=== PATIENT | female | born 1945 | race Two or more races ===

== ENCOUNTER 2017-11-23 14:36 | Outpatient (CLI) | payer MEDICARE, OTHER ==
[~2017-11-23 14:36] MED LIST: AMITRIPTYLINE25 MG ORAL; ASPIRIN EC81 MG ORAL; ATENOLOL50 MG ORAL; BIOTIN5000 MCG PO; CALCIUM500 M2 PO; FISH OIL CAP1000 MG ORAL; GLUCOSAMINE1000 M1 PO; METFORMIN HCL500 M1 ORAL; MULTIVITAMINS1 EAC2 ORAL; NEXIUM40 MG ORAL; PRESERVISION A1 EAC2 PO; PRIMIDONE50 MG PO; PROLIA60 MG/1 ML SUBQ; SINGULAIR10 MG ORAL; VITAMIN B12 INJ; VITAMIN D250000 UNI1 ORAL; ZETIA10 MG ORAL
[2017-11-23 14:50] VITALS: BP 121/61
--- NOTE | 2017-11-23 15:18 | GI Progress Note ---
Assessment/Plan Problems: (1) GERD (gastroesophageal reflux disease) ICD Codes: K21.9 - Gastro-esophageal reflux disease without esophagitis SNOMED: 124333501 Status: stable Status Narrative Seen with Dr. Justice. Assessment/Plan SUMMARY OF FINDINGS reviewed with patient: 1. Diffuse gastritis, status post biopsy. 2. Significant diverticulosis. 3. Two colonic polyp removed. See above for details. 4. Internal hemorrhoids. RECOMMENDATIONS: Follow up biopsy results and treat accordingly. >> negative for H. Pylori RTC prn repeat colonoscopy x 5 years Subjective Subjective GERD >> mild Objective T 97.5 BP 121/65 P 62 98 RA General Appearance: WD/WN, no apparent distress, alert Cardiovascular: normal rate Respiratory/Chest: normal breath sounds, no respiratory distress Abdominal Exam: normal bowel sounds, non tender, soft Extremities: normal range of motion, non-tender Lynda Chaudhary N.P. November 23, 2017 15:18
== END 2017-11-23 15:10 | disposition home or self-care (01) ==
LOC: PAN 14:36
DX: K21.9 Gastro-esophageal reflux disease without esophagitis (principal); K29.70 Gastritis, unspecified, without bleeding; K57.90 Diverticulosis of intestine, part unspecified, without perforation or abscess without bleeding; K63.5 Polyp of colon; K64.8 Other hemorrhoids
CPT/HCPCS: 99211

== ENCOUNTER 2020-05-14 13:08 | Outpatient (CLI) | payer MEDICARE, OTHER ==
[2020-05-14 13:40] VITALS: BP 114/65
[2020-05-14] MEDS ORDERED: CIPRO500 MG PO (13:40)
[2020-05-14] MEDS ORDERED: ZOFRAN4 M3 ORAL (13:40)
[2020-05-14 13:45] VITALS: BP 104/57
--- NOTE | 2020-05-14 14:02 | General Progress Note ---
Subjective ROS Limited/Unobtainable: Yes Allergies: Coded Allergies: No Known Allergies (Unverified , 11/06/17) Objective Last 24 Hour Vital Signs Date Time Temp Pulse Resp B/P (MAP) Pulse Ox O2 Delivery O2 Flow Rate FiO2 05/14/20 13:40 97.7 70 16 114/65 96 General Appearance: alert EENT: normal ENT inspection Neck: supple Cardiovascular: normal rate Respiratory/Chest: lungs clear Abdomen: normal bowel sounds, non tender, soft Extremities: non-tender Assessment/Plan Assessment/Plan: acute diverticulitis colon polyp 10/2017 hemorrhoids constipation gastritis GERD ppi abx RTC if no improvement repeat colon 10/2022 Fly Justice MD May 14, 2020 14:02
== END 2020-05-14 15:08 | disposition home or self-care (01) ==
LOC: PAN 13:08
DX: K57.92 Diverticulitis of intestine, part unspecified, without perforation or abscess without bleeding (principal); K63.5 Polyp of colon; K64.9 Unspecified hemorrhoids; K59.00 Constipation, unspecified; K29.70 Gastritis, unspecified, without bleeding; K21.9 Gastro-esophageal reflux disease without esophagitis
CPT/HCPCS: 99212